=== PATIENT | male | born 1990 | race Caucasian/White ===

== ENCOUNTER 2018-09-30 20:16 | Emergency (ER) | payer SELFPAY ==
[2018-09-30] MEDS ORDERED: KETOROLAC TROMETHAMINE 60 MG/2 ML VIAL IM ONE (20:34)
[2018-09-30] MEDS ORDERED: ORPHENADRINE CITRATE 60 MG/2 ML ML IM ONE (20:34)
--- NOTE | 2018-09-30 20:39 | ED Physician Documentation ---
Abdominal Pain - HISTORIAN Historian: patient, spouse (Significant other) - HPI Chief Complaint: Abdominal Pain Additonal Information: Patient is 28-year-old male that presents to the ER with c/o abdominal muscle pain after shoveling snow 2 weeks ago- he appears to be in no acute distress- he states he thought he would just have it checked out- he has been taking Tylenol and Ibuprofen occasionally. He has not been using heat or cold- he stated "I didn't think about that". He denies any fever or chills. Denies any change in bowel or bladder routine or presentation. Noticed wet cough- states he smokes > 1ppd for > 12 years- he states it hurts his stomach when he coughs. Pain is midline down the rectus abdominis. Denies any nausea, vomiting, or diarrhea Onset: days ago (2 weeks ago) Duration: other (sore- comes and goes- worsens when he coughs or lifts) Timing: still present Context: other (shoveling snow). denies: out of country travel, bad food, recent trauma Severity: mild Quality: dull, other ("muscle tenderness"- describes "its like when you do 1000 sit ups") Front/Back of Body, Lg (Color): 1 - Abdominal muscle soreness Associated Symptoms: denies: fever, chills, nausea, vomiting, bloody stools, loss of appetite, testicular pain, back pain Exacerbated by: movements (that require abdominal discomfort), cough Relieved by: upright position Further Comments: no - ROS CONST: no problems GI/: none CVS/RESP: cough (due to smoking) EYES/ENT: none MS/SKIN/LYMPH: none - SOCIAL HX Smoking History: greater than 1 pack/day Alcohol Use: occasionally Drug Use: none - FAMILY HX Family History: none - PAST HX Past History: none Ischemic Bowel Risk Factors: none Other History: none Surgeries/Procedures: none Immunizations: UTD Home Medications: Ambulatory Orders Medication Instructions Recorded Sulfamethoxazole/Trimethoprim 1 each PO BID #20 tablet 06/04/15 [Bactrim Ds] Baclofen [Liorasal] 10 mg PO BID PRN #20 tablet 09/30/18 Allergies/Adverse Reactions: Allergies Allergy/AdvReac Type Severity Reaction Status Date / Time No Known Allergies Allergy Verified 01/10/16 04:45 - VITAL SIGNS Vital Signs: Vital Signs Temp Pulse Resp BP Pulse Ox 97.1 F L 82 16 132/94 99 09/30/18 20:18 09/30/18 20:18 09/30/18 20:18 09/30/18 20:18 09/30/18 20:18 Progress - Progress Progress: 21:30 Patient feels much better after IM injections of Toradol and Norflex ED Results Lab/Radiology - Radiology Radiology Impressions: Abdomen series with single view chest History: Abdominal pain Findings: A single view of the chest reveals clear lungs and normal heart size. Upright and supine abdominal radiographs reveal a normal bowel gas pattern without obstruction, free air, or constipation. No abnormal calcifications are observed. Impression: Normal. Electronically signed on Sep 30, 2018 9:25:26 PM CDT by: Sanchez Goyal - Orders Orders: ED Orders Category Date Time Status ACUTE ABDOMINAL SERIES [ABD SERIES PA CHEST] [RAD] Stat Exams 09/30/18 Ordered Baclofen [Lioresal] Med 09/30/18 21:27 Ordered 20 mg PO TAKE HOME PRN Ketorolac Tromethamine [Toradol] Med 09/30/18 20:34 Discontinued 60 mg IM NOW ONE Orphenadrine Citrate [Norflex] Med 09/30/18 20:34 Discontinued 60 mg IM NOW ONE Abdominal Pain Physical Exam - Physical Exam General Appearance: alert, mild distress EENT: eye inspection normal, ENT inspection normal, pharynx normal, KEISHA NECK: normal inspection RESPIRATORY: breath sounds normal (wet cough- discussed stopping smoking) CVS: heart sounds normal, equal pulses ABDOMEN: soft, normal bowel sounds, tenderness (midline= muscle tenderness) MALE GENITAL: no hernia BACK: normal inspection SKIN: warm/dry, normal color EXTREMITIES: non-tender, normal range of motion NEURO: oriented X3, CN's nml as tested, motor nml, sensation nml, mood/affect nml, cognition normal Vital Signs: Vital Signs Temp Pulse Resp BP Pulse Ox 97.1 F L 82 16 132/94 99 09/30/18 20:18 09/30/18 20:18 09/30/18 20:18 09/30/18 20:18 09/30/18 20:18 Discharge Clincal Impression: Abdominal wall strain Prescriptions: Baclofen [Liorasal] 10 mg PO BID PRN #20 tablet PRN Reason: Muscle Spasms Referrals: Harrison Thompson MD [Primary Care Provider] - 2 Days Additional Instructions: Take Baclofen 10 mg by mouth twice a day as needed for muscle spasms Increase water intake Deep Breaths and Cough- (Stop Smoking) Use heating pad to abdomen Take Ibuprofen 600 mg every 6 hrs as needed for abdominal muscle strain Follow up with PCP as needed Condition: Good Disposition: 01 HOME, SELF-CARE Decision to Admit: NO Decision Time: 21:42
[2018-09-30] MEDS ORDERED: BACLOFEN 10 MG TABLET PO PRN (21:27)
[2018-09-30] MEDS ORDERED: BACLOFEN 10 MG TABLET PO ONE (21:38)
[2018-09-30 21:50] VITALS: BP 126/80
--- NOTE | 2018-10-01 08:08 | Diagnostic Imaging Report ---
JUAN CARLOS GONZALEZ ED [facility] [id number] [facility] [address] [address] Report Submission Date: Sep 30, 2018 9:25:26 PM CDT Patient Study Name: KOLE BAEZ Date: Sep 30, 2018 8:39:29 PM CDT Modality Type: DX Gender: M Description: ABD SERIES PA CHEST : 89 Institution: [facility] Physician: JUAN CARLOS GONZALEZ ED Abdomen series with single view chest History: Abdominal pain Findings: A single view of the chest reveals clear lungs and normal heart size. Upright and supine abdominal radiographs reveal a normal bowel gas pattern without obstruction, free air, or constipation. No abnormal calcifications are observed. Impression: Normal. Electronically signed on Sep 30, 2018 9:25:26 PM CDT by: Sanchez LEYVA
== END 2018-09-30 21:50 | disposition home or self-care (01) ==
LOC: ED 20:16
DX: S39.011A Strain of muscle, fascia and tendon of abdomen, initial encounter (principal); X58.XXXA Exposure to other specified factors, initial encounter; Y93.H1 Activity, digging, shoveling and raking; Y92.9 Unspecified place or not applicable
CPT/HCPCS: 74022; 96372; 99283; J1885; J2360